=== PATIENT | male | born 2000 ===

== ENCOUNTER 2022-07-28 05:26 | Emergency (ER) | payer MEDICAID ==
[~2022-07-28] VITALS: Ht 185.4 cm; Wt 77.7 kg
[2022-07-28 05:35] VITALS: BP 158/91
== END 2022-07-28 07:12 | disposition left against medical advice (07) ==
LOC: ER 05:27
DX: R06.02 Shortness of breath (principal); Z53.21 Procedure and treatment not carried out due to patient leaving prior to being seen by health care provider